=== PATIENT | female | born 1950 | race Caucasian/White ===

== ENCOUNTER → 2016-12-14 | Outpatient (CLI) | payer BC ==
[2016-05-10 20:39] VITALS: BP 139/65
[~2016-12-14] MED LIST: CIPR500T94 PO; HYDR-2758 PO
== END | disposition home or self-care (01) ==
LOC: PCVCCLINIC 09:42
PROVIDERS: ATTEND Internal Medicine Cardiovascular Disease
DX: Z51.81 Encounter for therapeutic drug level monitoring (principal); I48.91 Unspecified atrial fibrillation; I35.8 Other nonrheumatic aortic valve disorders; E78.5 Hyperlipidemia, unspecified; E78.1 Pure hyperglyceridemia; Z95.2 Presence of prosthetic heart valve; Z79.01 Long term (current) use of anticoagulants
CPT/HCPCS: 85610

== ENCOUNTER 2016-12-25 21:49 | Emergency (ER) | payer BC ==
[2016-12-25 23:00] VITALS: BP 158/69
[2016-12-25] MEDS ORDERED: HYDR-2758 PO (23:22)
[2016-12-25] MEDS ORDERED: CIPR500T94 PO (23:22)
--- NOTE | 2016-12-25 23:22 | PHYS DOC ---
Past Medical History Past Medical History: CHF, High Cholesterol, Hypertension, Hypothyroid, Other Additional Past Medical Histor: vit D deficiency Past Surgical History: Knee Replacement, Other Additional Past Surgical Histo: Left knee, aortic valve Alcohol Use: Rarely Drug Use: None Adult General Chief Complaint Chief Complaint: WOUND CHECK [facility] HPI Patient is a pleasant 66 showed female with a small open wound that has been not healing well for last 3 weeks. She been seen by her primary care doctor 1 week ago and placed on Bactrim orally for localized cellulitis and infection around the area. This area is mildly red mildly swollen and tender to touch our on the dorsum of the foot measuring 1 cm. Patient was worried that she had a low-grade 99.9 fever tonight without increasing pain but she wanted someone is look at the wound. She denies any night sweats, weight loss, increased swelling in the leg. She has chronic lower extremity edema for which she is on hydrochlorothiazide and Lasix. Patient denies any significant pain and only minimal drainage from the wound itself. She has follow-up in 2 days. Patient admits this is a self-inflicted injury which put the wrong answered in the wrong shoe and she developed a small blister that has now opened and this is the result. Review of Systems Review of Systems Constitutional: Subjective fevers and chills at home to 100.0 Eyes: Denies change in visual acuity, redness, or eye pain [] HENT: Denies nasal congestion or sore throat [] Respiratory: Denies cough or shortness of breath [] Cardiovascular: No additional information not addressed in HPI [] GI: Denies abdominal pain, nausea, vomiting, bloody stools or diarrhea [] : Denies dysuria or hematuria [] Musculoskeletal: Denies back pain or joint pain [] Integument: He describes localized swelling redness to the dorsum of the foot secondary to self-inflicted injury wearing the wrong insoles for issue. She developed initial blister Neurologic: Denies headache, focal weakness or sensory changes [] Endocrine: Denies polyuria or polydipsia [] Allergies Allergies Allergies Coded Allergies Type Severity Reaction Last Updated Verified No Known Drug Allergies 05/10/16 No Physical Exam Physical Exam patient noted to be hypertensive borderline febrile. Constitutional: Well developed, well nourished, no acute distress, non-toxic appearance. [] Cardiovascular:Heart rate regular rhythm, no murmur [] Lungs & Thorax: Bilateral breath sounds clear to auscultation [] Abdomen: Bowel sounds normal, soft, no tenderness, no masses, no pulsatile masses. [] Skin: Warm, dry, no erythema, no rash. [] Back: No tenderness, no CVA tenderness. [] Extremities: No tenderness, no cyanosis, no clubbing, ROM intact, no edema. [] Neurologic: Alert and oriented X 3, normal motor function, normal sensory function, no focal deficits noted. [] Psychologic: Affect normal, judgement normal, mood normal. [] EKG EKG [] Radiology/Procedures Radiology/Procedures [] Course & Med Decision Making Course & Med Decision Making Pertinent Labs and Imaging studies reviewed. (See chart for details) patient with a wound check to the dorsum of the right foot. It is mildly cellulitic patient will need wound care follow-up with her primary care doctor next 24 hours. After initiating appropriate antibiotic. Impression: Cellulitis, lower extremity Disposition: PCP follow-up 24-48 hours [] Dragon Disclaimer Dragon Disclaimer This electronic medical record was generated, in whole or in part, using a voice recognition dictation system. Departure Departure Impression: Primary Impression: Cellulitis Disposition: 01 HOME, SELF-CARE Condition: IMPROVED Referrals: NON,STAFF (PCP) Patient Instructions: Cellulitis, Wound Care, [id number] Additional Instructions: These return for any new or increasing symptoms of redness pain or swelling or drainage from the wound. Or fever greater than 102.2 Scripts Hydrocodone Bit/Acetaminophen (HYDROCODONE-APAP 5-325 ) 1 Each Tablet 1-2 TAB PO PRN Q6HRS Y for PAIN for 5 Days, #10 TAB 0 Refills Prov: PATY BROWN MD 12/25/16 Ciprofloxacin Hcl (CIPRO) 500 Mg Tablet 1 TAB PO BID, #20 TAB Prov: PATY BROWN MD 12/25/16 PATY BROWN MD Dec 25, 2016 23:22
[2016-12-25] MEDS ORDERED: CIPROFLOXACIN HCL 250 MG TABLET. PO ONE (23:30)
== END 2016-12-25 23:26 | disposition home or self-care (01) ==
LOC: ER 21:49
DX: L02.611 Cutaneous abscess of right foot (principal); I11.0 Hypertensive heart disease with heart failure; I50.9 Heart failure, unspecified; E03.9 Hypothyroidism, unspecified; Z48.01 Encounter for change or removal of surgical wound dressing
CPT/HCPCS: 99283

== ENCOUNTER → 2017-01-26 | Outpatient (CLI) | payer MEDICARE | END | disposition home or self-care (01) | LOC: PCVCCLINIC 16:00 | PROVIDERS: ATTEND Internal Medicine Cardiovascular Disease | DX: Z51.81 Encounter for therapeutic drug level monitoring (principal); I48.91 Unspecified atrial fibrillation; E78.1 Pure hyperglyceridemia; I35.8 Other nonrheumatic aortic valve disorders; Z95.2 Presence of prosthetic heart valve; Z79.01 Long term (current) use of anticoagulants | CPT/HCPCS: 85610 ==

== ENCOUNTER → 2017-02-15 | Outpatient (CLI) | payer BC | END | disposition home or self-care (01) | LOC: PMGWOUND 12:51 | PROVIDERS: ATTEND Emergency Medicine Undersea and Hyperbaric Medicine | DX: I87.2 Venous insufficiency (chronic) (peripheral) (principal); L97.511 Non-pressure chronic ulcer of other part of right foot limited to breakdown of skin; I10 Essential (primary) hypertension; E03.9 Hypothyroidism, unspecified; M19.90 Unspecified osteoarthritis, unspecified site; Z90.710 Acquired absence of both cervix and uterus; Z87.891 Personal history of nicotine dependence; I48.91 Unspecified atrial fibrillation; I11.0 Hypertensive heart disease with heart failure; I50.9 Heart failure, unspecified | CPT/HCPCS: 97597 ==

== ENCOUNTER → 2017-02-23 | Outpatient (CLI) | payer BC ==
--- NOTE | 2017-02-23 10:43 | RAD ---
Indication infected blister on the plantar aspect of the foot. Assess for potential foreign body. AP oblique and lateral views of the right foot were obtained. There are significant degenerative changes involving the midfoot. There are some cystic changes. A neuropathic foot is not excluded. Clinical correlation advised. There is some soft tissue swelling. No radiopaque foreign body is seen. Definite plain film findings of osteomyelitis are not seen.
== END | disposition home or self-care (01) ==
LOC: PMGWOUND 08:48
PROVIDERS: ATTEND Preventive Medicine Undersea and Hyperbaric Medicine
DX: L97.511 Non-pressure chronic ulcer of other part of right foot limited to breakdown of skin (principal); L84 Corns and callosities; I11.0 Hypertensive heart disease with heart failure; I50.9 Heart failure, unspecified; E03.9 Hypothyroidism, unspecified; I48.91 Unspecified atrial fibrillation; M19.90 Unspecified osteoarthritis, unspecified site; Z87.891 Personal history of nicotine dependence; Z90.710 Acquired absence of both cervix and uterus; Z79.01 Long term (current) use of anticoagulants
CPT/HCPCS: 11042; 73630

== ENCOUNTER → 2017-05-04 | Outpatient (CLI) | payer BC ==
[2017-05-04 16:28] LABS: C-REACTIVE PROTEIN 1.9 mg/L (0-3.3); CREATININE 1.2 mg/dL (0.6-1.0); GFR 44.8
[2017-05-05 04:19] LABS: RHEUMATOID FACTOR 21.4 IU/mL (0.0-13.9)
--- NOTE | 2017-05-05 08:17 | RAD ---
FOOT BILAT 3V bilateral AP, oblique, lateral Clinical Indication: Polyarthralgia Comparison: Right foot radiographs dated 02/23/2017 Findings: No acute fracture or malalignment. Bilateral advanced midfoot, hindfoot, and ankle arthrosis. Pes planus deformities. Hammertoe deformities. Calcaneal enthesophytes. Mild soft tissue swelling of the feet. Diffuse osteopenia. No radiopaque foreign bodies. IMPRESSION: 1. No acute fracture or malalignment. 2. 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
--- NOTE | 2017-05-05 08:30 | RAD ---
HAND BILAT 3V bilateral PA, oblique, lateral Clinical Indication: POLYARTHRALGIA Comparison: None. Findings: No acute fracture or malalignment. Bilateral sclerosis and flattening of the lunate consistent with avascular necrosis/Keinbock disease. Associated advanced intercarpal and radiocarpal arthrosis as well as scaphoid rotation. Diffuse osteopenia. No significant soft tissue abnormality. No radiopaque foreign body. IMPRESSION: 1. No acute fracture. 2. Bilateral sclerosis and flattening of the lunate consistent with avascular necrosis/Keinbock disease. Associated advanced intercarpal and radiocarpal arthrosis as well as scaphoid rotation.
== END | disposition home or self-care (01) ==
LOC: LAB 14:58
PROVIDERS: ATTEND Internal Medicine Rheumatology
DX: M19.071 Primary osteoarthritis, right ankle and foot (principal); M25.542 Pain in joints of left hand; M25.541 Pain in joints of right hand
CPT/HCPCS: 36415; 73130; 73630; 82565; 85651; 86140; 86200; 86431

== ENCOUNTER → 2017-08-10 | Outpatient (CLI) | payer OTHER | END | disposition home or self-care (01) | LOC: PCVCIMAG 16:00 | DX: I08.3 Combined rheumatic disorders of mitral, aortic and tricuspid valves (principal); D68.8 Other specified coagulation defects; R60.9 Edema, unspecified; M79.605 Pain in left leg; M79.604 Pain in right leg; Z82.49 Family history of ischemic heart disease and other diseases of the circulatory system; Z79.01 Long term (current) use of anticoagulants; Z95.2 Presence of prosthetic heart valve; Z87.891 Personal history of nicotine dependence; Z79.899 Other long term (current) drug therapy | CPT/HCPCS: 80061; 85610; 93005; 93306; 93970; G0463 ==

== ENCOUNTER → 2018-02-03 | Outpatient (CLI) | payer OTHER | END | disposition home or self-care (01) | LOC: PCVCCLINIC 12:27 | PROVIDERS: ATTEND Internal Medicine Cardiovascular Disease | DX: Z51.81 Encounter for therapeutic drug level monitoring (principal); E78.5 Hyperlipidemia, unspecified; Z95.2 Presence of prosthetic heart valve; Z79.01 Long term (current) use of anticoagulants; Z82.49 Family history of ischemic heart disease and other diseases of the circulatory system | CPT/HCPCS: 85610 ==

== ENCOUNTER 2018-08-31 08:55 | Emergency (ER) | payer OTHER ==
[~2018-08-31] VITALS: Ht 165.1 cm; Wt 127.0 kg
[~2018-08-31 08:55] MED LIST changes: -HYDR-2758 PO; +HYDR-2761 PO
[2018-08-31 09:35] VITALS: BP 204/86
[2018-08-31] MEDS ORDERED: KETOROLAC 60 MG/2 ML VIAL. IM ONE (10:00)
[2018-08-31] MEDS ORDERED: CYCL10TA2 PO (10:21)
[2018-08-31] MEDS ORDERED: HYDR-3164 PO (10:21)
[2018-08-31] MEDS ORDERED: METH4TAB2 PO (10:21)
--- NOTE | 2018-08-31 10:21 | PHYS DOC ---
Past Medical History Past Medical History: Arthritis, CHF, High Cholesterol, Hypertension, Hypothyroid, Other Additional Past Medical Histor: vit D deficiency Past Surgical History: Knee Replacement, Other Additional Past Surgical Histo: Left knee, aortic valve Alcohol Use: Rarely Drug Use: None Adult General Chief Complaint Chief Complaint: UPPER EXTREMITY PAIN HPI HPI Patient is a 67 year old right handed female with history of osteoarthritis who presents with complaining of right shoulder pain for the last 3 days. Patient states she has had constant right shoulder pain after playing a table game and using her right upper extremity frequently. Patient stated the pain getting worse with movement and complaining of limited range of motion because of pain. Patient denies focal neuro deficit, fever and chills, chest pain. Patient states she has had history of right shoulder arthritis and had a shoulder injection by her orthopedic physician with improvement of her pain previously. Review of Systems Review of Systems Constitutional: Denies fever or chills [] Eyes: Denies change in visual acuity, redness, or eye pain [] HENT: Denies nasal congestion or sore throat [] Respiratory: Denies cough or shortness of breath [] Cardiovascular: No additional information not addressed in HPI [] GI: Denies abdominal pain, nausea, vomiting, bloody stools or diarrhea [] : Denies dysuria or hematuria [] Musculoskeletal: Denies back pain, reports joint pain [] Integument: Denies rash or skin lesions [] Neurologic: Denies headache, focal weakness or sensory changes [] Endocrine: Denies polyuria or polydipsia [] All other systems were reviewed and found to be within normal limits, except as documented in this note. Current Medications Current Medications Current Medications Medications (Trade) Dose Ordered Sig/Hilaria Start Time Stop Time Status Last Admin Dose Admin Ketorolac Tromethamine (Toradol Im) 60 mg 1X ONCE 08/31/18 10:00 08/31/18 10:01 DC 08/31/18 10:20 60 MG Allergies Allergies Allergies Coded Allergies Type Severity Reaction Last Updated Verified No Known Drug Allergies 05/10/16 No Physical Exam Physical Exam Constitutional: Well developed, well nourished, mild distress, non-toxic appearance, morbidly obese. [] HENT: Normocephalic, atraumatic. Eyes: PERRLA, EOMI, conjunctiva normal, no discharge. [] Neck: Normal range of motion, no tenderness, supple, no stridor. [] Cardiovascular:Heart rate regular rhythm, no murmur [] Lungs & Thorax: Bilateral breath sounds clear to auscultation [] Skin: Warm, dry, no erythema, no rash. [] Extremities: Right shoulder without deformity or edema, painful range of motion and limited abduction, no neurovascular deficits or edema. Neurologic: Alert and oriented X 3, normal motor function, normal sensory function, no focal deficits noted. [] Psychologic: Affect normal, judgement normal, mood normal. [] Current Patient Data Vital Signs Vital Signs Date Time Temp Pulse Resp B/P (MAP) Pulse Ox O2 Delivery O2 Flow Rate FiO2 08/31/18 09:35 98.2 95 16 204/86 (125) 97 Room Air 98.2 EKG EKG [] Radiology/Procedures Radiology/Procedures [] Course & Med Decision Making Course & Med Decision Making Evaluation of patient in ER showed 67-year-old female patient with complaining of right shoulder pain after overusing her shoulder. Patient had painful range of motion without neurovascular deficit. Patient treated with Toradol in ER with improvement of her pain. Patient was advised to follow-up with her orthopedic physician. Dragon Disclaimer Dragon Disclaimer This electronic medical record was generated, in whole or in part, using a voice recognition dictation system. Departure Departure Impression: Primary Impression: Sprain of right shoulder Disposition: 01 HOME, SELF-CARE (at 10:30) Condition: STABLE Referrals: UNKNOWN PCP NAME (PCP) Patient Instructions: Shoulder Sprain Additional Instructions: Apply ice on right shoulder Follow-up with your orthopedic physician in 1-2 days Return to ER if not getting better Scripts Hydrocodone/Apap 5-325 (NORCO 5-325 TABLET) 1 Each Tablet 1 TAB PO PRN Q6HRS PRN for PAIN, #14 TAB 0 Refills Prov: ADELFO PACK MD 08/31/18 Methylprednisolone (MEDROL) 4 Mg Tab.ds.pk 1 PKG PO UD for inflammation, #1 PKG Prov: ADELFO PACK MD 08/31/18 Cyclobenzaprine Hcl (CYCLOBENZAPRINE HCL) 10 Mg Tablet 1 TAB PO TID for muscle pain, #30 TAB Prov: ADELFO PACK MD 08/31/18 Problem Qualifiers Primary Impression: Sprain of right shoulder Encounter type: initial encounter Shoulder sprain type: unspecified sprain Qualified Codes: S43.401A - Unspecified sprain of right shoulder joint, initial encounter ADELFO PACK MD Aug 31, 2018 10:21
== END 2018-08-31 10:40 | disposition home or self-care (01) ==
LOC: ER 08:55
DX: S43.401A Unspecified sprain of right shoulder joint, initial encounter (principal); E78.00 Pure hypercholesterolemia, unspecified; E03.9 Hypothyroidism, unspecified; I11.0 Hypertensive heart disease with heart failure; I50.9 Heart failure, unspecified; X50.9XXA Other and unspecified overexertion or strenuous movements or postures, initial encounter; Y93.89 Activity, other specified; Y92.89 Other specified places as the place of occurrence of the external cause; Y99.8 Other external cause status
CPT/HCPCS: 96372; 99283; J1885

== ENCOUNTER → 2018-11-29 | Outpatient (CLI) | payer OTHER ==
[~2018-11-29] MED LIST changes: +CYCL10TA2 PO; +HYDR-3164 PO; +METH4TAB2 PO
--- NOTE | 2018-11-29 17:31 | PCVCIMAG ---
APPROVED REPORT Study performed: 11/29/2018 14:41:37 EXAM: Comprehensive 2D, Doppler, and color-flow Echocardiogram Patient Location: Echo lab Status: routine BSA: 2.33 HR: 94 bpmBP: 146/98 mmHg Rhythm: NSR Other Information Study Quality: Adequate Risk Factors: Cardiac Risk Factors: Hyperlipidemia Indications Aortic Valve Disease Mitral Valve Disease S/P St. Aaron Aortic Valve Replacement 2D Dimensions IVSd: 9.66 (7-11mm)LVOT Diam: 23.00 (18-24mm) LVDd: 53.06 mm PWd: 10.25 (7-11mm)Ascending Ao: 39.42 (22-36mm) LVDs: 33.91 (25-40mm) Left Atrium: 42.81 (27-40mm) Aortic Root: 28.29 mm LV Single Plane 4CH: 50.29 % LV Single Plane 2CH: 57.38 % Biplane EF: 54.1 % Volumes Left Atrial Volume (Systole) Single Plane 4CH: 145.37 mLSingle Plane 2CH: 161.06 mL LA ESV Index: 68.00 mL/m2 Aortic Valve AoV Peak Thompson.: 2.87 m/s AO Peak Gr.: 32.85 mmHgLVOT Max P.53 mmHg AO Mean Gr.: 20.31 mmHg AO V2 Mean: 2.17 m/sLVOT Max V: 1.06 m/s AO V2 VTI: 61.94 cm PAYTON Vmax: 1.49 cm2 AI Vmax: 4.77 m/s AI [place]: 4.46 m/s2 AI PHT: 310.24 ms Mitral Valve MV Peak Gr.: 8.39 mmHg MV Mean Gr.: 5.24 mmHg MV Max Thompson.: 1.45 m/s MV Mean Thompson.: 1.10 m/s MV VTI: 417.65 mm MV PHT: 60.35 ms MVA (PHT): 3.65 cm2 Pulmonary Valve PV Peak Thompson.: 1.10 m/sPV Peak Gr.: 4.84 mmHg Tricuspid Valve TR Peak Thompson.: 2.81 m/sRAP Estimate: 7.00 mmHg TR Peak Gr.: 31.58 mmHg PA Pressure: 39.00 mmHg Left Ventricle The left ventricle is normal size. There is normal LV segmental wall motion. There is normal left ventricular wall thickness. The left ventricular systolic function is normal. The left ventricular ejection fraction is within the normal range. LVEF is 55-60%. This study is not technically sufficient to allow evaluation of the LV diastolic function. Right Ventricle The right ventricle is normal size. The right ventricular systolic function is normal. Atria Left atrium is severely dilated. Right atrium is severely dilated. Aortic Valve A mechanical St. Aaron valve is in the aortic position. Normally functioning prosthetic aortic valve. The peak pressure gradient is 33 mmHg and the mean pressure gradient is 20 mmHg. Mild to moderate aortic regurgitation. There is no aortic valvular stenosis. Mitral Valve Severe mitral annular calcification. Mild reduction in movement of the anterior and posterior leaflets. Moderate mitral regurgitation. No significant mitral valve stenosis. Tricuspid Valve The tricuspid valve is normal in structure. Moderate tricuspid regurgitation. Pulmonary artery pressure is 39 mmHg. Pulmonic Valve The pulmonary valve is normal in structure. Mild pulmonic regurgitation. Great Vessels The aortic root is normal in size. The ascending aorta is mildly dilated and measures 4.0 cm. IVC is normal in size and collapses >50% with inspiration. Pericardium There is no pericardial effusion. <Conclusion> The left ventricle is normal size. LVEF is 55-60%. This study is not technically sufficient to allow evaluation of the LV diastolic function. The right ventricle is normal size. Left atrium is severely dilated. Right atrium is severely dilated. A mechanical St. Aaron valve is in the aortic position. Normally functioning prosthetic aortic valve. The peak pressure gradient is 33 mmHg and the mean pressure gradient is 20 mmHg. Mild to moderate aortic regurgitation. Severe mitral annular calcification. Mild reduction in movement of the anterior and posterior leaflets. Moderate mitral regurgitation. Moderate tricuspid regurgitation. Pulmonary artery pressure is 39 mmHg. The aortic root is normal in size. The ascending aorta is mildly dilated and measures 4.0 cm. There is no pericardial effusion.
== END | disposition home or self-care (01) ==
LOC: PCVCIMAG 13:39
PROVIDERS: ATTEND Internal Medicine Cardiovascular Disease
DX: I08.3 Combined rheumatic disorders of mitral, aortic and tricuspid valves (principal); Z95.2 Presence of prosthetic heart valve
CPT/HCPCS: 93306

== ENCOUNTER → 2019-03-23 | Outpatient (CLI) | payer OTHER | END | disposition home or self-care (01) | LOC: PCVCCLINIC 14:56 | PROVIDERS: ATTEND Internal Medicine Cardiovascular Disease | DX: Z51.81 Encounter for therapeutic drug level monitoring (principal); E78.1 Pure hyperglyceridemia; E78.5 Hyperlipidemia, unspecified; Z95.2 Presence of prosthetic heart valve; Z79.01 Long term (current) use of anticoagulants; Z82.49 Family history of ischemic heart disease and other diseases of the circulatory system; Z96.659 Presence of unspecified artificial knee joint; Z87.891 Personal history of nicotine dependence | CPT/HCPCS: 36415; 85610 ==

== ENCOUNTER 2019-05-10 16:19 | Emergency (ER) | payer MEDICARE ==
[~2019-05-10] VITALS: Ht 165.1 cm; Wt 127.0 kg
[~2019-05-10 16:19] MED LIST changes: -CLOB15CR TP; -GENT30OI2 TP
[2019-05-10 17:08] LABS: BASO # 0.1 x10^3/uL (0.0-0.2); BASO % 1 % (0-3); EOS % 1 % (0-3); HEMATOCRIT 36.6 % (36.0-47.0); HEMOGLOBIN 12.2 g/dL (12.0-15.5); LYMPH # 0.9 x10^3/uL (1.0-4.8); LYMPH % 22 % (24-48); MEAN CORPUSCULAR HEMOGLOBIN 29 pg (25-35); MEAN CORPUSCULAR HGB CONC 33 g/dL (31-37); MEAN CORPUSCULAR VOLUME 88 fL (79-100); MONO # 0.7 x10^3/uL (0.0-1.1); MONO % 16 % (0-9); NEUT # 2.5 x10^3/uL (1.8-7.7); NEUT % 59 % (31-73); PLATELET COUNT 213 x10^3/uL (140-400); RED BLOOD COUNT 4.17 x10^6/uL (3.50-5.40); RED CELL DISTRIBUTION WIDTH 15.3 % (11.5-14.5); WHITE BLOOD COUNT 4.3 x10^3/uL (4.0-11.0)
[2019-05-10 17:18] LABS: CALCIUM 9.2 mg/dL (8.5-10.1); CREATININE 1.2 mg/dL (0.6-1.0); GFR 44.5; POTASSIUM 3.7 mmol/L (3.5-5.1)
--- NOTE | 2019-05-10 17:20 | NUR ---
Wound Care Called to ED to evaluate pt's left leg wound, known to WCRNs from last admission. Pt has a left lower extremity ulcer draining a small amount of serous fluid, periwound red and warm, with Atrophe Carol scarring present. Pt may have a combination of cellulitis with some vasculitis involved, as wound appearance indicates. Per pt, wound has been present on and off for 20 years. Spoke with pt, who stated she would like to be seen in the [facility] wound clinic for treatment, will have commercial sewing instructor contact pt for appt. Spoke with STEVEN Mays re: recommendations of Clobetasol cream and Gentamicin to wound and periwound, cover with gauze and kerlix, change daily. Will f/u with pt in clinic.
[2019-05-10 17:24] LABS: ALBUMIN 3.5 g/dL (3.4-5.0); ALBUMIN/GLOBULIN RATIO 0.7 (1.0-1.7); TOTAL BILIRUBIN 0.3 mg/dL (0.2-1.0); TOTAL PROTEIN 8.5 g/dL (6.4-8.2)
[2019-05-10] MEDS ORDERED: CLOB15CR TP ×2 (17:27→17:45)
[2019-05-10] MEDS ORDERED: GENT30OI2 TP ×2 (17:27→17:45)
--- NOTE | 2019-05-10 17:34 | PHYS DOC ---
Past Medical History Past Medical History: Arthritis, CHF, High Cholesterol, Hypertension, Hypothyroid, Other Additional Past Medical Histor: vit D deficiency Past Surgical History: Knee Replacement, Other Additional Past Surgical Histo: Left knee, aortic valve Alcohol Use: Rarely Drug Use: None Adult General Chief Complaint Chief Complaint: LOWER EXT PAIN [facility] HPI Patient is a 68 year old female who presents to the emergency department with complaints of purulent drainage from her left lower extremity. Patient states she was admitted to this facility on April 24, 2019 for cellulitis. She was discharged on April 30, 2019 with a prescription for 500 mg of Keflex by mouth 4 times a day. Patient states that the redness in her leg has decreased but the area began to drain clear to yellow pus today. She currently rates pain 8 out of 10 on the pain scale, she denies any numbness, tingling, weakness, or new new injury to the affected extremity. Patient denies any fever, shortness of breath, chest pain, nausea, vomiting, diarrhea, abdominal pain, or palpitations. All other ROS is neg unless otherwise noted in HPI. Review of Systems Review of Systems See Above Current Medications Current Medications Current Medications Medications (Trade) Dose Ordered Sig/Hilaria Start Time Stop Time Status Last Admin Dose Admin Clobetasol Propionate (Temovate) 1 flores 1X ONCE 05/10/19 18:00 05/10/19 18:01 DC Gentamicin Sulfate (Garamycin) 1 flores 1X ONCE 05/10/19 18:00 05/10/19 18:01 DC Allergies Allergies Allergies Coded Allergies Type Severity Reaction Last Updated Verified No Known Drug Allergies 04/27/19 No Physical Exam Physical Exam See Above Constitutional: Well developed, well nourished, no acute distress, non-toxic ap pearance, obese. [] HENT: Normocephalic, atraumatic, bilateral external ears normal, nose normal. [] Eyes: PERRLA, EOMI, conjunctiva normal, no discharge. [] Neck: Normal range of motion, no stridor. [] Cardiovascular:Heart rate regular rhythm Lungs & Thorax: Bilateral breath sounds clear to auscultation [] Skin: Warm, dry; erythema with centralized open area that is draining clear to yellow fluid noted to anterior left lower extremity concerning for cellulitis versus vasculitis Extremities: Left lower extremity red area is tender to palpation with 1+ edema, no cyanosis, range of motion intact, no crepitus, no deformity, Neurologic: Alert and oriented X 3, no focal deficits noted. [] Psychologic: Affect normal, judgement normal, mood normal. [] Current Patient Data Vital Signs Vital Signs Date Time Temp Pulse Resp B/P (MAP) Pulse Ox O2 Delivery O2 Flow Rate FiO2 05/10/19 17:09 98.5 86 18 189/96 (127) 93 Room Air 98.5 Lab Values Laboratory Tests Test 05/10/19 16:57 White Blood Count 4.3 x10^3/uL (4.0-11.0) Red Blood Count 4.17 x10^6/uL (3.50-5.40) Hemoglobin 12.2 g/dL (12.0-15.5) Hematocrit 36.6 % (36.0-47.0) Mean Corpuscular Volume 88 fL (79-100) Mean Corpuscular Hemoglobin 29 pg (25-35) Mean Corpuscular Hemoglobin Concent 33 g/dL (31-37) Red Cell Distribution Width 15.3 % (11.5-14.5) H Platelet Count 213 x10^3/uL (140-400) Neutrophils (%) (Auto) 59 % (31-73) Lymphocytes (%) (Auto) 22 % (24-48) L Monocytes (%) (Auto) 16 % (0-9) H Eosinophils (%) (Auto) 1 % (0-3) Basophils (%) (Auto) 1 % (0-3) Neutrophils # (Auto) 2.5 x10^3/uL (1.8-7.7) Lymphocytes # (Auto) 0.9 x10^3/uL (1.0-4.8) L Monocytes # (Auto) 0.7 x10^3/uL (0.0-1.1) Eosinophils # (Auto) 0.0 x10^3/uL (0.0-0.7) Basophils # (Auto) 0.1 x10^3/uL (0.0-0.2) Sodium Level 137 mmol/L (136-145) Potassium Level 3.7 mmol/L (3.5-5.1) Chloride Level 99 mmol/L (98-107) Carbon Dioxide Level 29 mmol/L (21-32) Anion Gap 9 (6-14) Blood Urea Nitrogen 25 mg/dL (7-20) H Creatinine 1.2 mg/dL (0.6-1.0) H Estimated GFR (Cockcroft-Gault) 44.5 BUN/Creatinine Ratio 21 (6-20) H Glucose Level 94 mg/dL (70-99) Lactic Acid Level 1.2 mmol/L (0.4-2.0) Calcium Level 9.2 mg/dL (8.5-10.1) Total Bilirubin 0.3 mg/dL (0.2-1.0) Aspartate Amino Transferase (AST) 35 U/L (15-37) Alanine Aminotransferase (ALT) 13 U/L (14-59) L Alkaline Phosphatase 72 U/L (46-116) Total Protein 8.5 g/dL (6.4-8.2) H Albumin 3.5 g/dL (3.4-5.0) Albumin/Globulin Ratio 0.7 (1.0-1.7) L Laboratory Tests 05/10/19 16:57 Laboratory Tests 05/10/19 16:57 EKG EKG [] Radiology/Procedures Radiology/Procedures 174- Per Kira Garcia breadman. Appears to be vasculitis versus cellulitis, wound clinic will call patient tomorrow to schedule follow up appointment. Application of gentamicin ointment and clobetasol ointment mixture to the affected area once daily with dressing changes once daily is recommended by wound care.[] Course & Med Decision Making Course & Med Decision Making Pertinent Labs and Imaging studies reviewed. (See chart for details) [address] Morales, advised of worsening creatinine UN. Patient will follow-up with wound care about the draining wound. Advised that the patient's vital signs are stable in the patient is continuing to take Keflex as prescribed. Advised the plan to prescribe gentamicin ointment and clobetasol ointment as recommended by wound care. Will instruct the patient to apply a mixture of these 2 ointments to the affected area once daily. Dr. Morales was in agreement with the plan of care for this patient, does not recommend admission at this time. Discussed plan of care with patient's who is in agreement. Patient states that while sitting in the emergency department she received a call from her wound care physician and her appointment has been moved up to next Tuesday. Prescriptions for clobetasol and gentamicin ointment sent over to [facility]. Patient verbalized an understanding of home care, medications, follow-up, and return to ED instructions and was in agreement with the plan of care. [] Sepideh Disclaimer Dragon Disclaimer This electronic medical record was generated, in whole or in part, using a voice recognition dictation system. Departure Departure Impression: Primary Impression: Left leg cellulitis Additional Impression: Left leg pain Disposition: HOME, SELF-CARE Condition: STABLE Referrals: [facility]ER[facility] (PCP) Patient Instructions: Cellulitis, [id number], Wound Care, [id number] Additional Instructions: Continue taking your keflex as prescribed. Fill the prescriptions and use as d irected. Apply the ointment mixture to your leg and cover with gauze daily. Follow-up with the wound care clinic as you have planned for next Tuesday. Return to the ER if symptoms worsen or you develop a fever. Scripts Gentamicin Sulfate (Gentamicin Sulfate) 30 Gm Oint...g. 1 FLORES TP DAILY for 7 Days, #30 GM 0 Refills mix with clobetasol ointmene and apply to red area on lower left leg once daily. Prov: DANIAL PORTILLO CHEMICAL TREATMENT OPERATOR 05/10/19 Clobetasol Propionate (CLOBETASOL PROPIONATE) 15 Gm Cream..g. 1 FLORES TP DAILY for 10 Days, #30 GM 0 Refills mix with gentamycin ointment and apply to red area on left leg daily Prov: DANIAL PORTILLO CHEMICAL TREATMENT OPERATOR 05/10/19 Problem Qualifiers DANIAL PORTILLO CHEMICAL TREATMENT OPERATOR May 10, 2019 17:34
[2019-05-10] MEDS ORDERED: CLOBETASOL EMOLLIENT 0.05% TOPICAL CREAM 15GM TUBE. TP ONE (18:00)
[2019-05-10] MEDS ORDERED: GENTAMICIN 0.1% TOPICAL OINTMENT 15GM TUBE. TP ONE (18:00)
[2019-05-10 18:35] VITALS: BP 153/94
== END 2019-05-10 18:35 | disposition home or self-care (01) ==
LOC: ER 16:19
DX: L03.116 Cellulitis of left lower limb (principal); I11.0 Hypertensive heart disease with heart failure; I50.9 Heart failure, unspecified; E78.00 Pure hypercholesterolemia, unspecified; E03.9 Hypothyroidism, unspecified
CPT/HCPCS: 36415; 80053; 83605; 85025; 87071; 87075; 99284

== ENCOUNTER → 2019-05-10 | Outpatient (CLI) | payer MEDICARE ==
[2019-04-30 11:00] VITALS: BP 132/74
[~2019-05-10] MED LIST changes: +ACET325T9 PO; +CEPH250C PO; +CLOB15CR TP; +DOCU-153 PO; +GENT30OI2 TP; +HYDR200T5 PO; +LEVO300T2 PO; +POTA20TA4 PO; +TORS20TA2 PO; +TRAM50TA PO; +WARF-31 PO
== END | disposition home or self-care (01) ==
LOC: PCVCCLINIC 10:20
PROVIDERS: ATTEND Internal Medicine Cardiovascular Disease
DX: Z51.81 Encounter for therapeutic drug level monitoring (principal); E78.1 Pure hyperglyceridemia; E78.5 Hyperlipidemia, unspecified; Z82.49 Family history of ischemic heart disease and other diseases of the circulatory system; Z95.2 Presence of prosthetic heart valve; Z79.01 Long term (current) use of anticoagulants
CPT/HCPCS: 36415; 85610

== ENCOUNTER → 2019-05-14 | Outpatient (CLI) | payer MEDICARE ==
[2019-05-10 18:35] VITALS: BP 153/94
[~2019-05-14] MED LIST changes: +CLOB15CR TP; +GENT30OI2 TP
== END | disposition home or self-care (01) ==
LOC: PCVCCLINIC 11:00
PROVIDERS: ATTEND Internal Medicine Cardiovascular Disease
DX: Z51.81 Encounter for therapeutic drug level monitoring (principal); E78.1 Pure hyperglyceridemia; E78.5 Hyperlipidemia, unspecified; Z95.2 Presence of prosthetic heart valve; Z79.01 Long term (current) use of anticoagulants; Z82.49 Family history of ischemic heart disease and other diseases of the circulatory system
CPT/HCPCS: 36415; 85610

== ENCOUNTER → 2021-08-14 | Outpatient (CLI) | payer MEDICARE ==
[~2021-08-14] MED LIST changes: +CYCL10TA19 PO; -CYCL10TA2 PO; +DOCU-148 PO; -DOCU-153 PO
--- NOTE | 2021-08-14 15:41 | RAD ---
FDG PET/CT SKULL BASE TO UPPER THIGHS Clinical Indication: Esophageal cancer, stage III. Comparison: No relevant comparison exams. Technique: Patient blood glucose at the time of injection is 90 mg/dL. The patient was administered 1 1.9 mCi of F-18 FDG intravenously. The patient rested quietly during a 45 minute uptake period. Then PET imaging from the skull vertex to the upper thighs was performed. A noncontrast CT was acquired ov er this same area. The CT is for attenuation correction and anatomic localization, it is not of diagn ostic quality and is not intended to diagnose disease independently of the PET. Reported standard upt angelina values (SUV) are the maximum SUV within a lesional volumetric region of interest. SUV normalizati on is via body mass. PQRS Compliance Statement: One or more of the following individualized dose reduction techniques were utilized for this examinat ion: 1. Automated exposure control 2. Adjustment of the mA and/or kV according to patient size 3. Use of iterative reconstruction technique Findings: Mediastinal blood pool SUV reference value: Max 4.7, mean 3. There is outside of [id number] artifa ct that degrades image quality. Head and neck: There is symmetric FDG uptake of the thyroid gland suggestive of thyroiditis. There is no FDG avid ad enopathy. Chest: There is moderate FDG uptake of the mid thoracic esophagus beginning at the level of the diana, SUVm ax 7.9. The approximate craniocaudal length of the FDG uptake is 1.8 cm. There is near circumferentia l thickening of the involved esophagus. There is a moderate sized sliding-type hiatal hernia. No FDG avid mediastinal lymph nodes are identif ied. 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 Calcified left hilar lymph node. There is dense mitral annular calcifica tion. Respiratory motion artifact in the lungs significantly limits evaluation. Abdomen and pelvis: There is slight misregistration between the PET and CT due to differences in respiratory excursion in the upper abdomen. There is no evidence of FDG avid metastatic disease. Cholelithiasis. Musculoskeletal: There is no evidence of FDG-avid metastatic disease. There are degenerative changes in the spine. IMPRESSION: 1. There is short segment wall thickening and moderate FDG uptake of the mid thoracic esophagus at t he level of the diana/subcarina. Correlate to site of patient's malignancy. 2. There is no FDG avid mediastinal adenopathy. 3. There is no evidence of FDG avid extrathoracic metastasis. Electronically signed by: Kit Smith MD (08/14/2021 3:39 PM) [facility]
== END | disposition home or self-care (01) ==
LOC: PETSC 12:36
PROVIDERS: ATTEND Internal Medicine
DX: C15.4 Malignant neoplasm of middle third of esophagus (principal); K80.20 Calculus of gallbladder without cholecystitis without obstruction; K44.9 Diaphragmatic hernia without obstruction or gangrene; I34.8 Other nonrheumatic mitral valve disorders; M47.819 Spondylosis without myelopathy or radiculopathy, site unspecified
CPT/HCPCS: 78815; A9552

== ENCOUNTER 2021-08-26 07:10 | Outpatient (CLI) | payer MEDICARE ==
[~2021-08-26] VITALS: Ht 165.1 cm; Wt 127.3 kg
[2021-08-26] MEDS ORDERED: ceFAZolin SODIUM IV Push 1 GM VIAL. IVP ONE (07:15)
[2021-08-26 07:44] LABS: BASO % 1 % (0-3); EOS # 0.1 x10^3/uL (0.0-0.7); EOS % 3 % (0-3); HEMATOCRIT 35.9 % (36.0-47.0); HEMOGLOBIN 11.1 g/dL (12.0-15.5); LYMPH # 1.1 x10^3/uL (1.0-4.8); LYMPH % 23 % (24-48); MEAN CORPUSCULAR HEMOGLOBIN 25 pg (25-35); MEAN CORPUSCULAR HGB CONC 31 g/dL (31-37); MEAN CORPUSCULAR VOLUME 79 fL (79-100); MONO # 0.6 x10^3/uL (0.0-1.1); MONO % 14 % (0-9); NEUT # 2.8 x10^3/uL (1.8-7.7); NEUT % 60 % (31-73); PLATELET COUNT 142 x10^3/uL (140-400); RED BLOOD COUNT 4.53 x10^6/uL (3.50-5.40); RED CELL DISTRIBUTION WIDTH 19.2 % (11.5-14.5); WHITE BLOOD COUNT 4.6 x10^3/uL (4.0-11.0)
[2021-08-26 07:51] VITALS: BP 125/60
[2021-08-26] MEDS ORDERED: GLUC-126 PO (07:55)
[2021-08-26] MEDS ORDERED: MULT-697 PO (07:55)
[2021-08-26] MEDS ORDERED: METO50TA4 PO (07:55)
[2021-08-26] MEDS ORDERED: MAGN400T17 PO (07:55)
[2021-08-26] MEDS ORDERED: PANT40TA77 PO (07:55)
[2021-08-26] MEDS ORDERED: TORS20TA2 PO (07:55)
[2021-08-26] MEDS ORDERED: vit d PO (07:55)
[2021-08-26] MEDS ORDERED: SUCR1TAB PO (07:55)
[2021-08-26 07:57] LABS: PROTHROMBIN TIME PATIENT 13.2 SEC (11.7-14.0)
[2021-08-26] MEDS ORDERED: LIDOCAINE 1%/EPI 1:100,000 20 ML VIAL. ONE (08:12)
[2021-08-26 08:13] LABS: CALCIUM 9.3 mg/dL (8.5-10.1); CREATININE 1.1 mg/dL (0.6-1.0); POTASSIUM 3.8 mmol/L (3.5-5.1)
[2021-08-26 08:18] LABS: TOTAL BILIRUBIN 0.3 mg/dL (0.2-1.0)
[2021-08-26] MEDS ORDERED: MIDAZOLAM HCL/PF 2 MG/2 ML VIAL. ONE (08:24)
[2021-08-26] MEDS ORDERED: fentaNYL PF VIAL 100 MCG/2 ML VIAL ONE (08:25)
[2021-08-26] MEDS ORDERED: MIDAZOLAM HCL/PF 2 MG/2 ML VIAL. IV ONE (09:00)
[2021-08-26] MEDS ORDERED: fentaNYL PF VIAL 100 MCG/2 ML VIAL IV ONE (09:00)
[2021-08-26] MEDS ORDERED: LIDOCAINE 1%/EPI 1:100,000 20 ML VIAL. INJ ONE (09:00)
[2021-08-26 09:06] VITALS: BP 130/84
[2021-08-26 09:21] VITALS: BP 141/83
[2021-08-26 09:35] VITALS: BP 123/89
--- NOTE | 2021-08-26 09:43 | RAD ---
PROCEDURE: Fluoroscopically and ultrasound-guided placement of right internal jugular tunnel central venous catheter with port (Bard PowerPort, Groshong tip ). Clinical Indication: Esophageal cancer, chemotherapy access Discussion: The risks and benefits of the procedure were discussed with the patient and/or their guest relations representative. Informed consent was obtained. The patient was brought to the fluoroscopy suite and placed in supine position. A time out procedure was performed. The right neck and chest were prepped and draped using maximum sterile barrier technique including th e use of: Current guideline approved cutaneous antisepsis, a large sterile sheet to establish a steri le field. Additionally the well testing operator wore a hat, mask, sterile gloves, a sterile gown during the proce dure as well as practiced acceptable hand hygiene prior to placing the port. Ultrasound-guided access: Ultrasound evaluation showed the right jugular vein to be patent and compr essible. 1 % lidocaine with epinephrine was administered to the skin and subcutaneous tissues overlyi ng the right neck and chest. Under direct ultrasound guidance a single wall puncture was made followe d by tract dilation and placement of a sheath. An ultrasound image was saved and sent to PACS. Next, an incision was made in an infraclavicular location and a pocket created. The catheter was tunneled between the pocket and the venotomy site. The catheter was advanced through the peel away sheath, u nder fluoroscopic guidance, such that it's tip was in the mid right atrium. The catheter was connecte d to the port reservoir. The port was accessed and found to flush and aspirate normally. The reservoi r was then placed into the subcutaneous pocket. The wound was closed in layers using 4-0 Vicryl sutur e. Dermabond was applied overlying the wound, and venotomy site. The patient tolerated procedure with out immediate complication. Sedation: The procedure was performed under conscious sedation including continuous cardiopulmonary m onitoring via a dedicated sedation nurse. Agiw-xk-xzkc sedation time: 25 minutes Fluoroscopy time: 0.7 mins Dose area product 4 Ervin centimeter squared Impression: Successful ultrasound and fluoroscopically guided placement of right internal jugular chani marcelo central venous catheter with port (Bard PowerPort, Groshong tip). Electronically signed by: John Freitas MD (08/26/2021 9:40 AM) [id number]
--- NOTE | 2021-08-26 09:43 | RAD ---
PROCEDURE: Fluoroscopically and ultrasound-guided placement of right internal jugular tunnel central venous catheter with port (Bard PowerPort, Groshong tip ). Clinical Indication: Esophageal cancer, chemotherapy access Discussion: The risks and benefits of the procedure were discussed with the patient and/or their denial management representative. Informed consent was obtained. The patient was brought to the fluoroscopy suite and placed in supine position. A time out procedure was performed. The right neck and chest were prepped and draped using maximum sterile barrier technique including th e use of: Current guideline approved cutaneous antisepsis, a large sterile sheet to establish a steri le field. Additionally the field artillery radar operator wore a hat, mask, sterile gloves, a sterile gown during the proce dure as well as practiced acceptable hand hygiene prior to placing the port. Ultrasound-guided access: Ultrasound evaluation showed the right jugular vein to be patent and compr essible. 1 % lidocaine with epinephrine was administered to the skin and subcutaneous tissues overlyi ng the right neck and chest. Under direct ultrasound guidance a single wall puncture was made followe d by tract dilation and placement of a sheath. An ultrasound image was saved and sent to PACS. Next, an incision was made in an infraclavicular location and a pocket created. The catheter was tunneled between the pocket and the venotomy site. The catheter was advanced through the peel away sheath, u nder fluoroscopic guidance, such that it's tip was in the mid right atrium. The catheter was connecte d to the port reservoir. The port was accessed and found to flush and aspirate normally. The reservoi r was then placed into the subcutaneous pocket. The wound was closed in layers using 4-0 Vicryl sutur e. Dermabond was applied overlying the wound, and venotomy site. The patient tolerated procedure with out immediate complication. Sedation: The procedure was performed under conscious sedation including continuous cardiopulmonary m onitoring via a dedicated sedation nurse. Bqaf-rq-olhe sedation time: 25 minutes Fluoroscopy time: 0.7 mins Dose area product 4 Ervin centimeter squared Impression: Successful ultrasound and fluoroscopically guided placement of right internal jugular chani marcelo central venous catheter with port (Bard PowerPort, Groshong tip). Electronically signed by: John Freitas MD (08/26/2021 9:40 AM) [id number]
[2021-08-26 09:50] VITALS: BP 140/85
[2021-08-26 10:05] VITALS: BP 146/92
--- NOTE | 2021-08-26 10:28 | NUR ---
Pt discharged to home in private vehicle with family. Pt ambulated and tolerated PO
[2021-09-01] MEDS ORDERED: ENOX120D SQ (04:03)
== END 2021-08-26 10:29 | disposition home or self-care (01) ==
LOC: INTRAD 07:10
PROVIDERS: ATTEND Internal Medicine
DX: Z45.2 Encounter for adjustment and management of vascular access device (principal); C15.9 Malignant neoplasm of esophagus, unspecified; E66.9 Obesity, unspecified; E03.9 Hypothyroidism, unspecified; M19.90 Unspecified osteoarthritis, unspecified site; I11.0 Hypertensive heart disease with heart failure; I50.9 Heart failure, unspecified; Z87.891 Personal history of nicotine dependence; Z72.89 Other problems related to lifestyle; Z98.890 Other specified postprocedural states; Z90.710 Acquired absence of both cervix and uterus
CPT/HCPCS: 36415; 36561; 76937; 77001; 80053; 85025; 85610; 99152; 99153; C1788; C1892; J0690; J2250; J3010; J3490

== ENCOUNTER → 2021-08-27 | Outpatient (CLI) | payer MEDICARE ==
[2021-08-26 10:05] VITALS: BP 146/92
[~2021-08-27] MED LIST changes: +CONTRAST GIVEN. MC PRN; +ENOX120D SQ; +GLUC-126 PO; +IOHEXOL 240 MG/ML 50ML VIAL. PO ONE; +MAGN400T17 PO; +METO50TA4 PO; +MULT-697 PO; +PANT40TA77 PO; +SUCR1TAB PO; +vit d PO
== END ==
LOC: CT 11:27
PROVIDERS: ATTEND Radiology Radiation Oncology
DX: C15.4 Malignant neoplasm of middle third of esophagus (principal)
CPT/HCPCS: 76380; Q9966; 36415; 80053; 83735; 84100; 85025

== ENCOUNTER → 2021-08-27 | Outpatient (CLI) | payer MEDICARE ==
[2021-08-26 10:05] VITALS: BP 146/92
[~2021-08-27] MED LIST changes: -CONTRAST GIVEN. MC PRN; -IOHEXOL 240 MG/ML 50ML VIAL. PO ONE
[2021-08-27 10:18] LABS: BASO % 1 % (0-3); EOS # 0.1 x10^3/uL (0.0-0.7); EOS % 2 % (0-3); HEMATOCRIT 35.2 % (36.0-47.0); HEMOGLOBIN 10.9 g/dL (12.0-15.5); LYMPH # 0.9 x10^3/uL (1.0-4.8); LYMPH % 20 % (24-48); MEAN CORPUSCULAR HEMOGLOBIN 25 pg (25-35); MEAN CORPUSCULAR HGB CONC 31 g/dL (31-37); MEAN CORPUSCULAR VOLUME 80 fL (79-100); MONO # 0.6 x10^3/uL (0.0-1.1); MONO % 13 % (0-9); NEUT # 2.9 x10^3/uL (1.8-7.7); NEUT % 65 % (31-73); PLATELET COUNT 129 x10^3/uL (140-400); RED BLOOD COUNT 4.43 x10^6/uL (3.50-5.40); RED CELL DISTRIBUTION WIDTH 19.6 % (11.5-14.5); WHITE BLOOD COUNT 4.5 x10^3/uL (4.0-11.0)
[2021-08-27 10:27] LABS: CALCIUM 9.6 mg/dL (8.5-10.1); GFR 54.7; POTASSIUM 4.1 mmol/L (3.5-5.1)
[2021-08-27 10:34] LABS: ALBUMIN 3.7 g/dL (3.4-5.0); ALBUMIN/GLOBULIN RATIO 0.8 (1.0-1.7); PHOSPHORUS 2.9 mg/dL (2.6-4.7); TOTAL BILIRUBIN 0.3 mg/dL (0.2-1.0); TOTAL PROTEIN 8.2 g/dL (6.4-8.2)
== END ==
LOC: ONCLAB 09:39
PROVIDERS: ATTEND Internal Medicine Hematology & Oncology
DX: C15.4 Malignant neoplasm of middle third of esophagus (principal)
CPT/HCPCS: 36415; 80053; 83735; 84100; 85025

== ENCOUNTER 2021-08-28 15:07 | Emergency (ER) | payer MEDICARE ==
[~2021-08-28] VITALS: Ht 165.1 cm; Wt 127.2 kg
[~2021-08-28 15:07] MED LIST changes: -ENOX120D SQ
--- NOTE | 2021-08-28 15:46 | PHYS DOC ---
Past Medical History Past Medical History: Arthritis, CHF, High Cholesterol, Hypertension, Hyp othyroid, Other Additional Past Medical Histor: vit D deficiency Past Surgical History: Knee Replacement, Other Additional Past Surgical Histo: Left knee, aortic valve,PAC PLACEMENT 08/26/21 Smoking Status: Former Smoker Alcohol Use: Rarely Drug Use: None Adult General Chief Complaint Chief Complaint: OTHER COMPLAINTS [facility] HPI Patient is a 70 year old female presenting to the emergency department for evaluation of bleeding from her recent port site insertion. Patient has aortic valve and is on Coumadin but held her Coumadin 5 days before the port insertion site but has been on Lovenox twice daily and continues on Lovenox as her INR was checked today and it was 1.1. She says that she was doing some work but nothing too strenuous and that she took a nap and she woke up and noted that there was bleeding coming from her port site and she called 9 1 and they applied pressure and appeared to stop but she did have intermittent bleeding and decided to come to the emergency department. On evaluation it appears that there is a slight dehiscence maybe the size of the point of pen and it is dripping blood and there is an ABD pad that is partially soaked with blood as well. There is swelling around the site but she denies any fevers chills nausea vomiting or other systemic symptoms. Review of Systems Review of Systems Constitutional: Denies fever or chills [] Eyes: Denies change in visual acuity, redness, or eye pain [] HENT: Denies nasal congestion or sore throat [] Respiratory: Denies cough or shortness of breath [] Cardiovascular: No additional information not addressed in HPI [] GI: Denies abdominal pain, nausea, vomiting, bloody stools or diarrhea [] : Denies dysuria or hematuria [] Musculoskeletal: Denies back pain or joint pain [] Integument: Denies rash or skin lesions [] Neurologic: Denies headache, focal weakness or sensory changes [] All other systems were reviewed and found to be within normal limits, except as documented in this note. Current Medications Current Medications Current Medications Medications (Trade) Dose Ordered Sig/Hilaria Start Time Stop Time Status Last Admin Dose Admin Lidocaine/ Epinephrine (LIDOCAINE 1%-EPI 1:100,000 Multi-Dose) 20 ml STK-MED ONCE 08/28/21 16:55 08/28/21 16:56 DC Allergies Allergies Allergies Coded Allergies Type Severity Reaction Last Updated Verified No Known Drug Allergies 04/27/19 No Physical Exam Physical Exam Constitutional: Well developed, well nourished, no acute distress, non-toxic appearance. [] Cardiovascular:Heart rate regular rhythm, no murmur [] Lungs & Thorax: Bilateral breath sounds clear to auscultation [] Abdomen: Bowel sounds normal, soft, no tenderness, no masses, no pulsatile masses. [] Skin: There appears to be a pinpoint dehiscence towards the middle of the port insertion site. Neurologic: Alert and oriented X 3, normal motor function, normal sensory function, no focal deficits noted. [] Current Patient Data Vital Signs Vital Signs Date Time Temp Pulse Resp B/P (MAP) Pulse Ox O2 Delivery O2 Flow Rate FiO2 08/28/21 15:24 97.9 91 19 178/112 (134) 98 Room Air 97.9 EKG EKG [] Radiology/Procedures Radiology/Procedures [] Course & Med Decision Making Course & Med Decision Making While I was trying to get a hold of interventional radiology I was planning on trying to hold pressure in place Dermabond however the bleeding appeared to increase in amount and then I was able to speak to Dr. Sandor Johnston and he was somewhat perplexed on why the port was bleeding and is going to come evaluate the site. Patient had lidocaine with epinephrine injected in the wound with more Dermabond applied and a special dressing applied by Dr. Johnston. She is not bleeding here any longer so we will discharge her home and she is reliable and says she would return if she starts having bleeding or any more problems. Patient discharged in stable condition with normal vital signs. Dragon Disclaimer Dragon Disclaimer This electronic medical record was generated, in whole or in part, using a voice recognition dictation system. Departure Departure Impression: Primary Impression: History of insertion of tunneled central venous catheter (CVC) with port Additional Impression: Bleeding from wound Disposition: 01 HOME / SELF CARE / HOMELESS Condition: STABLE Referrals: KERI HOU (PCP) Patient Instructions: Implanted Port Instructions Problem Qualifiers TAB ANTONIO DO Aug 28, 2021 15:46
[2021-08-28] MEDS ORDERED: LIDOCAINE 1%/EPI 1:100,000 20 ML VIAL. ONE (16:55)
--- NOTE | 2021-08-28 17:28 | PDOC ---
Provider Note Date of Service: DATE: 08/28/21 TIME: 17:26 Provider Note IR NOTE Patient seen, and examined. Oozing from port incision. No significant pocket hematoma identified. Likley due to coumadin and lovenox. INR pending Lido with epi given. Manual pressure held. Dermabond reapplied. This seemed to achieve hemostasis. Sterile dressings applied. pt asked to hold evening lovenox. Plan discussed with ED provider. Justifications for Admission Other Justification JUAN PABLO SANCHEZ MD Aug 28, 2021 17:28
[2021-08-28 18:14] VITALS: BP 146/60
[2021-08-28 18:16] LABS: BASO % 1 % (0-3); CALCIUM 9.4 mg/dL (8.5-10.1); CREATININE 1.2 mg/dL (0.6-1.0); EOS # 0.1 x10^3/uL (0.0-0.7); EOS % 2 % (0-3); GFR 44.3; HEMATOCRIT 36.5 % (36.0-47.0); HEMOGLOBIN 11.3 g/dL (12.0-15.5); LYMPH # 1.1 x10^3/uL (1.0-4.8); LYMPH % 22 % (24-48); MEAN CORPUSCULAR HEMOGLOBIN 25 pg (25-35); MEAN CORPUSCULAR HGB CONC 31 g/dL (31-37); MEAN CORPUSCULAR VOLUME 80 fL (79-100); MONO # 0.6 x10^3/uL (0.0-1.1); MONO % 12 % (0-9); NEUT # 3.3 x10^3/uL (1.8-7.7); NEUT % 63 % (31-73); PLATELET COUNT 125 x10^3/uL (140-400); POTASSIUM 4.5 mmol/L (3.5-5.1); RED BLOOD COUNT 4.55 x10^6/uL (3.50-5.40); RED CELL DISTRIBUTION WIDTH 19.8 % (11.5-14.5); WHITE BLOOD COUNT 5.1 x10^3/uL (4.0-11.0)
[2021-08-28 18:22] LABS: ALBUMIN 3.8 g/dL (3.4-5.0); ALBUMIN/GLOBULIN RATIO 0.9 (1.0-1.7); TOTAL BILIRUBIN 0.3 mg/dL (0.2-1.0); TOTAL PROTEIN 8.2 g/dL (6.4-8.2)
[2021-08-28 18:38] LABS: PROTHROMBIN TIME PATIENT 14.1 SEC (11.7-14.0)
[2021-09-01] MEDS ORDERED: ENOX120D SQ (04:03)
== END 2021-08-28 18:19 | disposition home or self-care (01) ==
LOC: ER 15:07
DX: I97.618 Postprocedural hemorrhage of a circulatory system organ or structure following other circulatory system procedure (principal); Z45.2 Encounter for adjustment and management of vascular access device; I11.0 Hypertensive heart disease with heart failure; I50.9 Heart failure, unspecified; E78.00 Pure hypercholesterolemia, unspecified; E03.9 Hypothyroidism, unspecified; Z79.01 Long term (current) use of anticoagulants; Z87.891 Personal history of nicotine dependence; Y83.8 Other surgical procedures as the cause of abnormal reaction of the patient, or of later complication, without mention of misadventure at the time of the procedure; Y92.89 Other specified places as the place of occurrence of the external cause
CPT/HCPCS: 36415; 80053; 85025; 85610; 85730; 99283; 99285-25

== ENCOUNTER → 2021-09-24 | Outpatient (CLI) | payer MEDICARE ==
[2021-09-02 11:00] VITALS: BP 132/55
[~2021-09-24] MED LIST changes: +ENOX120D SQ
[2021-09-24 09:44] LABS: BASO % 1 % (0-3); EOS % 2 % (0-3); HEMATOCRIT 35.6 % (36.0-47.0); HEMOGLOBIN 11.6 g/dL (12.0-15.5); LYMPH # 0.4 x10^3/uL (1.0-4.8); LYMPH % 19 % (24-48); MEAN CORPUSCULAR HEMOGLOBIN 27 pg (25-35); MEAN CORPUSCULAR HGB CONC 32 g/dL (31-37); MEAN CORPUSCULAR VOLUME 83 fL (79-100); MONO # 0.4 x10^3/uL (0.0-1.1); MONO % 23 % (0-9); NEUT # 1.1 x10^3/uL (1.8-7.7); NEUT % 56 % (31-73); PLATELET COUNT 81 x10^3/uL (140-400); RED BLOOD COUNT 4.28 x10^6/uL (3.50-5.40)
[2021-09-24 09:52] LABS: POTASSIUM 3.7 mmol/L (3.5-5.1)
[2021-09-24 09:55] LABS: WHITE BLOOD COUNT 1.9 x10^3/uL (4.0-11.0)
[2021-09-24 09:57] LABS: ALBUMIN 3.9 g/dL (3.4-5.0); ALBUMIN/GLOBULIN RATIO 0.9 (1.0-1.7); CALCIUM 9.3 mg/dL (8.5-10.1); GFR 54.7; MAGNESIUM 1.7 mg/dL (1.8-2.4); PHOSPHORUS 3.1 mg/dL (2.6-4.7); TOTAL BILIRUBIN 0.5 mg/dL (0.2-1.0); TOTAL PROTEIN 8.2 g/dL (6.4-8.2)
[2021-09-24 10:43] LABS: % BANDS 6 % (0-9); % EOS 1 % (0-5); % LYMPHS 21 % (24-48); % MONOS 18 % (0-10); % SEGS 54 % (35-66)
[2021-09-24 10:44] LABS: PLT ESTIMATE ADEQUATE (ADEQUATE)
== END ==
LOC: ONCLAB 09:25
PROVIDERS: ATTEND Internal Medicine
DX: C15.4 Malignant neoplasm of middle third of esophagus (principal)
CPT/HCPCS: 36415; 80053; 83735; 84100; 85007; 85025

== ENCOUNTER → 2021-10-09 | Outpatient (CLI) | payer MEDICARE ==
[2021-09-02 11:00] VITALS: BP 132/55
[2021-10-09 10:02] LABS: CALCIUM 8.9 mg/dL (8.5-10.1); CREATININE 1.1 mg/dL (0.6-1.0); POTASSIUM 3.5 mmol/L (3.5-5.1)
[2021-10-09 10:03] LABS: BASO # 0.1 x10^3/uL (0.0-0.2); BASO % 0 % (0-3); EOS % 0 % (0-3); HEMATOCRIT 31.5 % (36.0-47.0); HEMOGLOBIN 10.1 g/dL (12.0-15.5); LYMPH # 0.5 x10^3/uL (1.0-4.8); LYMPH % 3 % (24-48); MEAN CORPUSCULAR HEMOGLOBIN 28 pg (25-35); MEAN CORPUSCULAR HGB CONC 32 g/dL (31-37); MEAN CORPUSCULAR VOLUME 88 fL (79-100); MONO # 0.5 x10^3/uL (0.0-1.1); MONO % 3 % (0-9); NEUT # 14.6 x10^3/uL (1.8-7.7); PLATELET COUNT 40 x10^3/uL (140-400); RED BLOOD COUNT 3.58 x10^6/uL (3.50-5.40); RED CELL DISTRIBUTION WIDTH 26.6 % (11.5-14.5); WHITE BLOOD COUNT 15.8 x10^3/uL (4.0-11.0)
[2021-10-09 10:07] LABS: ALBUMIN 3.3 g/dL (3.4-5.0); ALBUMIN/GLOBULIN RATIO 0.8 (1.0-1.7); MAGNESIUM 1.7 mg/dL (1.8-2.4); PHOSPHORUS 3.1 mg/dL (2.6-4.7); TOTAL BILIRUBIN 0.5 mg/dL (0.2-1.0); TOTAL PROTEIN 7.4 g/dL (6.4-8.2)
[2021-10-09 10:32] LABS: NEUT % 93 % (31-73)
== END ==
LOC: ONCLAB 09:07
PROVIDERS: ATTEND Radiology Radiation Oncology
DX: C15.4 Malignant neoplasm of middle third of esophagus (principal)
CPT/HCPCS: 36415; 80053; 83540; 83735; 84100; 85025

== ENCOUNTER → 2021-10-12 | Outpatient (CLI) | payer MEDICARE ==
[2021-09-02 11:00] VITALS: BP 132/55
[2021-10-12 09:55] LABS: BASO % 1 % (0-3); EOS % 1 % (0-3); HEMATOCRIT 30.9 % (36.0-47.0); HEMOGLOBIN 10.2 g/dL (12.0-15.5); LYMPH # 0.5 x10^3/uL (1.0-4.8); LYMPH % 15 % (24-48); MEAN CORPUSCULAR HEMOGLOBIN 30 pg (25-35); MEAN CORPUSCULAR HGB CONC 33 g/dL (31-37); MEAN CORPUSCULAR VOLUME 90 fL (79-100); MONO # 0.7 x10^3/uL (0.0-1.1); MONO % 20 % (0-9); NEUT # 2.2 x10^3/uL (1.8-7.7); NEUT % 64 % (31-73); PLATELET COUNT 63 x10^3/uL (140-400); RED BLOOD COUNT 3.45 x10^6/uL (3.50-5.40); RED CELL DISTRIBUTION WIDTH 28.3 % (11.5-14.5); WHITE BLOOD COUNT 3.4 x10^3/uL (4.0-11.0)
[2021-10-12 12:24] LABS: % BANDS 22 % (0-9); % BASOS 1 % (0-3); % EOS 3 % (0-5); % LYMPHS 17 % (24-48); % METAS 1 % (0-0); % MONOS 23 % (0-10); % MYELOS 1 % (0-0); % SEGS 32 % (35-66); NUCLEATED RBC 1
[2021-10-12 12:42] LABS: ANISOCYTOSIS MOD; PLT ESTIMATE DECREASED (ADEQUATE); TOXIC GRANULATION MOD
== END ==
LOC: ONCLAB 09:37
PROVIDERS: ATTEND Physician Assistant
DX: C15.4 Malignant neoplasm of middle third of esophagus (principal)
CPT/HCPCS: 36415; 85007; 85025